=== PATIENT | female | born 1995 | race Caucasian/White ===

== ENCOUNTER 2021-10-30 22:04 | Emergency (ER) | payer SELFPAY ==
[~2021-10-30] VITALS: Ht 154.9 cm; Wt 102.4 kg
[2021-10-30] MEDS ORDERED: SUMATRIPTAN SUCCINATE 25MG TABLET PO ONE (22:45)
[2021-10-30] MEDS ORDERED: DEXAMETHASONE 4MG/ML 1ML VIAL IM ONE (22:45)
[2021-10-30] MEDS ORDERED: IBUPROFEN 800MG TABLET PO ONE (22:45)
[2021-10-30] MEDS ORDERED: ONDANSETRON 4MG ODT PO ONE (23:00)
[2021-10-30] MEDS ORDERED: METOCLOPRAMIDE HCL 5MG TABLET PO ONE (23:00)
[2021-10-31] MEDS ORDERED: HYDROCODONE/ACETAMINOPHEN 5/325MG TABLET PO ONE
[2021-10-31] MEDS ORDERED: RIZA10TA97 MT (01:01)
[2021-10-31] MEDS ORDERED: T3 PO (01:01)
[2021-10-31 01:07] VITALS: BP 125/85
== END 2021-10-31 01:13 | disposition home or self-care (01) ==
LOC: ER 22:04
DX: U07.1 COVID-19 (principal); G43.909 Migraine, unspecified, not intractable, without status migrainosus; Z90.49 Acquired absence of other specified parts of digestive tract
CPT/HCPCS: 96372; 99284; J1100; J8597